=== PATIENT | female | born 1965 | race Caucasian/White ===

== ENCOUNTER 2016-04-28 04:55 | Emergency (ER) | payer OTHER ==
[~2016-04-28 04:55] MED LIST: CYMBALTA60 MG PO; FAMOTIDINE 1010 MG PO; FIORICET1 TAB PO; LEXAPRO PO; LEXAPRO20 MG PO; PEPCID AC10 M1 PO; SOMA350 MG PO; TAP PO; XAN1 PO; YASMIN PO; ZOFRAN ODT4 MG SL
[2016-04-28 05:39] VITALS: BP 138/92
== END 2016-04-28 05:39 | disposition home or self-care (01) ==
LOC: ED 04:55
DX: F41.9 Anxiety disorder, unspecified (principal); E05.90 Thyrotoxicosis, unspecified without thyrotoxic crisis or storm; E11.9 Type 2 diabetes mellitus without complications; Z79.899 Other long term (current) drug therapy; Z88.2 Allergy status to sulfonamides
CPT/HCPCS: J2001

== ENCOUNTER 2016-12-30 12:15 | Emergency (ER) | payer OTHER ==
[~2016-12-30] VITALS: Ht 162.6 cm; Wt 66.7 kg
[2016-12-30 13:33] VITALS: BP 132/82
== END 2016-12-30 13:33 | disposition home or self-care (01) ==
LOC: ED 12:15
DX: G43.909 Migraine, unspecified, not intractable, without status migrainosus (principal); R03.0 Elevated blood-pressure reading, without diagnosis of hypertension; E11.9 Type 2 diabetes mellitus without complications; Z79.84 Long term (current) use of oral hypoglycemic drugs; Z88.2 Allergy status to sulfonamides
CPT/HCPCS: 82962; J1885; J2765

== ENCOUNTER 2017-11-26 15:41 | Emergency (ER) | payer OTHER ==
[~2017-11-26] VITALS: Ht 162.6 cm; Wt 65.8 kg
[2017-11-26 15:57] VITALS: BP 123/82; Ht 162.6 cm; Wt 65.8 kg
== END 2017-11-26 17:58 | disposition home or self-care (01) ==
LOC: ED 15:41
DX: M53.3 Sacrococcygeal disorders, not elsewhere classified (principal); E11.9 Type 2 diabetes mellitus without complications; F41.9 Anxiety disorder, unspecified; F32.9 Major depressive disorder, single episode, unspecified; E05.90 Thyrotoxicosis, unspecified without thyrotoxic crisis or storm; Z88.2 Allergy status to sulfonamides
CPT/HCPCS: J1885

== ENCOUNTER 2017-12-19 13:03 | Emergency (ER) | payer OTHER ==
[~2017-12-19] VITALS: Ht 167.6 cm; Wt 67.1 kg
[2017-12-19 13:09] VITALS: Ht 167.6 cm; Wt 67.1 kg
[2017-12-19 17:14] LABS: BASOPHIL % 0.9 % (0-2); PLATELET COUNT 265 x10^3mcL (130-400); RED CELL DISTRIBUTION WIDTH 14.3 % (11.5-14.5)
[2017-12-19 17:42] LABS: CALCIUM 8.8 mg/dL (8.5-10.1); CARBON DIOXIDE 25.5 mmol/L (21-32); CHLORIDE SERUM 105 mmol/L (98-107); CREATININE SERUM 0.5 mg/dL (0.6-1.0); GFR1 > 60 mL/min; GLUCOSE SERUM 86 mg/dL (74-106); SODIUM SERUM 137 mmol/L (136-145)
[2017-12-19 17:47] LABS: ALBUMIN 3.7 g/dL (3.4-5.0); ALKALINE PHOSPHATASE 119 U/L (46-116); ALT/SGPT 40 U/L (14-59); AST/SGOT 32 U/L (15-37); BILIRUBIN TOTAL 0.2 mg/dL (0.20-1.00); TOTAL PROTEIN, SERUM 7.1 g/dL (6.4-8.2)
[2017-12-19 18:47] VITALS: BP 134/84
== END 2017-12-19 18:47 | disposition home or self-care (01) ==
LOC: ED 13:03
PROVIDERS: Emergency Medicine
DX: J20.9 Acute bronchitis, unspecified (principal); E11.9 Type 2 diabetes mellitus without complications; F41.9 Anxiety disorder, unspecified; F32.9 Major depressive disorder, single episode, unspecified; E03.9 Hypothyroidism, unspecified; Z88.2 Allergy status to sulfonamides
CPT/HCPCS: 36415

== ENCOUNTER 2018-01-06 09:13 | Emergency (ER) | payer OTHER ==
[~2018-01-06] VITALS: Ht 162.6 cm; Wt 65.3 kg
[2018-01-06 09:21] VITALS: Ht 162.6 cm; Wt 65.3 kg
[2018-01-06 10:34] LABS: BASOPHIL % 0.5 % (0-2); PLATELET COUNT 244 x10^3mcL (130-400); RED CELL DISTRIBUTION WIDTH 14.1 % (11.5-14.5)
[2018-01-06 10:40] LABS: CALCIUM 8.6 mg/dL (8.5-10.1); CARBON DIOXIDE 28.3 mmol/L (21-32); CHLORIDE SERUM 105 mmol/L (98-107); CREATININE SERUM 0.5 mg/dL (0.6-1.0); GFR1 > 60 mL/min; GLUCOSE SERUM 113 mg/dL (74-106); POTASSIUM SERUM 3.8 mmol/L (3.5-5.1); SODIUM SERUM 141 mmol/L (136-145)
[2018-01-06 10:44] LABS: ALBUMIN 3.9 g/dL (3.4-5.0); ALKALINE PHOSPHATASE 113 U/L (46-116); ALT/SGPT 40 U/L (14-59); AMYLASE 65 U/L (25-115); AST/SGOT 29 U/L (15-37); BILIRUBIN TOTAL 0.21 mg/dL (0.20-1.00); LIPASE 308 IU/L (73-393); TOTAL PROTEIN, SERUM 7.8 g/dL (6.4-8.2)
[2018-01-06 12:38] VITALS: BP 153/86
== END 2018-01-06 12:38 | disposition left against medical advice (07) ==
LOC: ED 09:13
PROVIDERS: Emergency Medicine
DX: R16.0 Hepatomegaly, not elsewhere classified (principal); R10.13 Epigastric pain; R11.0 Nausea; E11.9 Type 2 diabetes mellitus without complications; F41.9 Anxiety disorder, unspecified; F32.9 Major depressive disorder, single episode, unspecified; E05.90 Thyrotoxicosis, unspecified without thyrotoxic crisis or storm; Z90.49 Acquired absence of other specified parts of digestive tract; Z98.890 Other specified postprocedural states; Z88.2 Allergy status to sulfonamides
CPT/HCPCS: J1885

== ENCOUNTER 2019-03-07 00:21 | Inpatient (IN) | payer OTHER ==
[~2019-03-07] VITALS: Ht 160 cm; Wt 65.3 kg
[2019-03-07 00:33] VITALS: Ht 160 cm; Wt 65.3 kg
[2019-03-07 01:49] LABS: PLATELET COUNT 209 x10^3mcL (130-400)
[2019-03-07 01:51] LABS: BASOPHIL % 4.1 % (0-2); RED CELL DISTRIBUTION WIDTH 15.2 % (11.5-14.5)
[2019-03-07 02:17] LABS: CARBON DIOXIDE 25 mmol/L (21-32); CHLORIDE SERUM 105 mmol/L (98-107); CREATININE SERUM 0.5 mg/dL (0.6-1.0); GFR1 > 60 mL/min; GLUCOSE SERUM 141 mg/dL (74-106); POTASSIUM SERUM 3.2 mmol/L (3.5-5.1); SODIUM SERUM 139 mmol/L (136-145)
[2019-03-07 02:18] LABS: ALBUMIN 3.4 g/dL (3.4-5.0); ALKALINE PHOSPHATASE 384 U/L (46-116); ALT/SGPT 55 U/L (14-59); AST/SGOT 58 U/L (15-37); BILIRUBIN TOTAL 0.56 mg/dL (0.20-1.00); CALCIUM 8.5 mg/dL (8.5-10.1)
[2019-03-07 06:58] VITALS: BP 124/69
[2019-03-07 07:45] VITALS: BP 124/69
[2019-03-07 09:07] VITALS: BP 111/64
== END 2019-03-07 12:54 | disposition left against medical advice (07) | DRG 203 ==
LOC: ED 00:21 → DU 05:47
PROVIDERS: Emergency Medicine; ADMIT Internal Medicine Pulmonary Disease
DX: R07.89 Other chest pain (principal); E03.9 Hypothyroidism, unspecified; E11.9 Type 2 diabetes mellitus without complications; F41.9 Anxiety disorder, unspecified; F32.9 Major depressive disorder, single episode, unspecified; N80.9 Endometriosis, unspecified; Z53.29 Procedure and treatment not carried out because of patient's decision for other reasons; Z90.49 Acquired absence of other specified parts of digestive tract; Z88.2 Allergy status to sulfonamides; Z79.899 Other long term (current) drug therapy; Z85.05 Personal history of malignant neoplasm of liver; Z92.21 Personal history of antineoplastic chemotherapy; Z79.84 Long term (current) use of oral hypoglycemic drugs
CPT/HCPCS: 85378; G0378; Q0092